=== PATIENT | male | born 1995 | race Caucasian/White ===

== ENCOUNTER 2018-07-28 16:08 | Emergency (ER) | payer MEDICAID, OTHER ==
[~2018-07-28] VITALS: Ht 175.3 cm; Wt 98.2 kg
[2018-07-28 16:12] VITALS: BP 127/69; PULSE 72; RESP 18; Ht 175.3 cm; Wt 98.2 kg
[2018-07-28] MEDS ORDERED: KETOROLAC 30 MG INJ IM STA (16:50)
[2018-07-28] MEDS ORDERED: DEXAMETHASONE 10 MG/ML 1 ML INJ IM ONE (17:00)
[2018-07-28] MEDS ORDERED: CYCL10TA7 PO (17:05)
[2018-07-28] MEDS ORDERED: NAPR-985 PO (17:05)
--- NOTE | 2018-07-28 17:19 | ERD ---
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 Pain in left low back with bending and twisting, numbness with onset of pain that radiates down into left leg. No difficulty with urination or BM. Patient had similar symptoms one year ago and was diagnosed with sciatica. No chronic medical problems. Patient is ambulatory, NAD at time of evaluation. ROS All systems reviewed and are negative except as per history of present illness. Medications Home Meds Active Scripts Cyclobenzaprine Hcl* (Cyclobenzaprine Hcl*) 10 Mg Tablet, 10 MG PO QHS PRN for MUSCLE SPASMS for 5 Days, #5 TAB Prov:CARROL ALONZO NP 07/28/18 Naproxen* (Naprosyn*) 500 Mg Tablet, 500 MG PO BID PRN for PAIN AND/OR INFLAMMAT ION, #30 TAB Prov:CARROL ALONZO NP 07/28/18 Allergies Allergies: Coded Allergies: No Known Allergy (Unverified , 07/28/18) PMhx/Soc Medical and Surgical Hx: pt denies Medical Hx, pt denies Surgical Hx Hx Alcohol Use: No Hx Substance Use: No Hx Tobacco Use: No FmHx Family History: No diabetes, No coronary disease, No other Physical Exam Vitals Vital Signs Date Temp Pulse Resp B/P (MAP) Pulse Ox O2 O2 Flow FiO2 Time Delivery Rate 07/28/18 97.9 72 18 127/69 98 16:12 (88) Physical Exam Const: No acute distress Head: Atraumatic Eyes: Normal Conjunctiva, PERRL ENT: Normal External Ears, Nose and Mouth. Neck: Full range of motion. No meningismus. No lymphadenopathy. Resp: Clear to auscultation bilaterally Cardio: Regular rate and rhythm, no murmurs Abd: Soft, non tender, non distended. Normal bowel sounds. No hepato or splenomegaly. Skin: No petechiae or rashes Ext: No cyanosis, or edema Neur: Awake and alert, slow steady gait, neg antalgic gait Psych: Normal Mood and Affect Back Exam: Skin: No bruising or rash Compartments: Soft Motor: Limited forward flexion to approximately 40 degrees, normal extension of bilateral hip/knee/ankle/foot, moves on and off gurney without difficulty Sensation: Intact to light touch throughout Bones: No midline TTP Straight-leg exam: right leg; +tight hamstrings, elvation to 90 deg without back pain; left leg: pain elicited @ 45 deg, concentrated in left back with mild radiation of pain and numbness to posterior upper left leg Results 24 hrs Current Medications Medications Dose Sig/Antionette Start Time Status Last (Trade) Ordered Route PRN Stop Time Admin Dose Reason Admin Ketorolac 30 mg ONCE STAT 07/28/18 DC 07/28/18 Tromethamine IM 16:50 17:01 (Toradol) 07/28/18 16:51 10 mg ONCE ONCE 07/28/18 DC 07/28/18 Dexamethasone IM 17:00 17:01 (Decadron) 07/28/18 17:01 Procedures/MDM This is a 23-year-old male patient presents emergency room with back pain x1 day. ED COURSE: The patient was stable throughout ED course. DIAGNOSTIC IMAGING: Not indicated MEDICATIONS GIVEN: Toradol, Decadron Patient tolerated medication well with no adverse reactions. Patient reported improvement in pain. MDM: Patient's musculoskeletal symptoms have stabilized while they have been evaluated in the department and are appropriate for outpatient work up. No evidence of cauda equina, cord compression, infiltrative, or infectious etiology. Patient ambulatory without difficulty, NAD at time of discharge. DISPOSITION: The patient has been discharge home to follow-up with community physician. Departure Diagnosis: Primary Impression: Sciatica Condition: Stable Patient Instructions: R.I.C.E., Understanding Sciatica, Back Pain W/ Sciatica Referrals: COMMUNITY CLINICS YOU HAVE RECEIVED A MEDICAL SCREENING EXAM AND THE RESULTS INDICATE THAT YOU DO NOT HAVE A CONDITION THAT REQUIRES URGENT TREATMENT IN THE EMERGENCY DEPARTMENT. FURTHER EVALUATION AND TREATMENT OF YOUR CONDITION CAN WAIT UNTIL YOU ARE SEEN IN YOUR DOCTORS OFFICE WITHIN THE NEXT 1-2 DAYS. IT IS YOUR RESPONSIBILITY TO MAKE AN APPOINTMENT FOR FOLOW-UP CARE. IF YOU HAVE A PRIMARY DOCTOR --you should call your primary doctor and schedule an appointment IF YOU DO NOT HAVE A PRIMARY DOCTOR YOU CAN CALL OUR PHYSICIAN REFERRAL HOTLINE AT IF YOU CAN NOT AFFORD TO SEE A PHYSICIAN YOU CAN CHOSE FROM THE FOLLOWING [facility] [address] [facility]. [facility] [address] [facility] [facility] [address] [facility] [address] [facility] [address] [facility]. [facility] [address] Additional Instructions: Thank you very much for allowing us to participate in your care. Your health and safety is our top priority at [facility]. Call your primary care doctor TOMORROW for an appointment during the next 2-4 days and bring all the information and medications prescribed. Have prescriptions filled and follow precisely the directions on the label. If the symptoms get worse and your provider is unavailable, return to the Emergency Department immediately. PERFORM STRETCHING EXERCISES DAILY USE NAPROSYN DAILY USE ICE FOR THE NEXT 72 HOURS THEN USE HEAT USE CAUTION WITH USE OF FLEXERIL THIS MEDICATION MAY MAKE YOU DROWSY. CARROL ALONZO NP Jul 28, 2018 17:18
== END 2018-07-28 17:23 | disposition home or self-care (01) ==
LOC: FTE 16:08
DX: M54.42 Lumbago with sciatica, left side (principal)
CPT/HCPCS: 96372; J1100; J1885; Z7502